=== PATIENT | female | born 1955 | race Caucasian/White ===

== ENCOUNTER 2024-09-15 01:01 | Emergency (ER) | payer OTHER, MEDICAID ==
[~2024-09-15] VITALS: Ht 160 cm; Wt 81.0 kg
--- NOTE | 2024-09-15 02:44 | ED.PDOC ---
General HPI Comments This patient is a pleasant but morbidly obese 69-year-old female who arrives the ED today with the family due to complaints of bilateral flank pain concerns of the radiating into her belly. Patient states the symptoms began last night and have continued through the day. Patient states they worsened several hours ago. Patient denies any fever nausea or vomiting. Vital signs were stable on arrival. Chief Complaint: Flank Pain Time Seen by MD: 01:05 Reviewed notes: Nurses Notes Information Source: Patient, Relative Mode of Arrival: Ambulatory Severity: Moderate Timing: Days Duration: Since onset Prehospital treatment: Pain Meds Onset: Spontaneous Symptoms: None History of: None Location: Abdomen, (R) Flank, (L)Flank associated signs and symptoms: Abdominal Pain, Flank Pain Past Medical History PAST MEDICAL HISTORY: Denies Surgical History: Denies all surgeries [employer] History: No Pertinent [employer] History Family History Family History: Reviewed,noncontributory to illness, No family hx of Cancer, No family hx of DM, No family hx of Heart casper, No family hx of HTN, No family hx ofKidney casper, No family hx of Liver casper, No family hx of Lung casper, No family hx of Stroke Social History Smoker: Non-Smoker Alcohol: Denies ETOH Use Drugs: Denies Drug Use Lives In: Home Constitutional: denies: chills, diaphoresis, fatigue, fever, malaise, sweats, weakness, others EENTM: denies: blurred vision, double vision, ear bleeding, ear discharge, ear drainage, ear pain, ear ringing, eye pain, eye redness, hearing loss, mouth pain, mouth swelling, nasal discharge, nose bleeding, nose congestion, nose pain, photophobia, tearing, throat pain, throat swelling, voice changes, others Respiratory: denies: cough, hemoptysis, orthopnea, SOB at rest, shortness of breath, SOB with excertion, stridor, wheezing, others Cardiovascular: denies: chest pain, dizzy spells, diaphoresis, Dyspnea on exertion, edema, irregular heart beat, left arm pain, lightheadedness, palpitations, PND, syncope, others Gastrointestinal: reports: abdominal pain; denies: abdomen distended, blood streaked bowels, constipated, diarrhea, dysphagia, difficulty swallowing, hematemesis, melena, nausea, poor appetite, poor fluid intake, rectal bleeding, rectal pain, vomiting, others Genitourinary: reports: flank pain; denies: abnormal vagina bleeding, burning, dyspareunia, dysuria, frequency, hematuria, incontinence, pain, , vagina discharge, urgency, others Neurological: denies: dizziness, fainting, headache, left sided numbness, left sided weakness, numbness, paresthesia, pre-existing deficit, right sided numbness, right sided weakness, seizure, speech problems, tingling, tremors, weakness, others Musculoskeletal: denies: back pain, gout, joint pain, joint swelling, muscle pain, muscle stiffness, neck pain, others Integumetry: denies: bruises, change in color, change in hair/nails, dryness, laceration, lesions, lumps, rash, wounds, others Allergic/Immunocompromised: denies: Difficulty Healing, Frequent Infections, Hives, Itching, others Hematologic/Lymphatic: denies: anemia, blood clots, easy bleeding, easy bruisi ng, swollen glands, others Endocrine: denies: excessive hunger, excessive sweating, excessive thirst, exce ssive urination, flushing, intolerance to cold, intolerance to heat, unexplained weight gain, unexplained weight loss, others Psychiatric: denies: anxiety, bipolar disorder, depression, hopeless, panic disorder, schizophrenia, sleepless, suicidal, others Physical Exam General Appearance: Moderate Distress (Due to bilateral flank pain concerns.), Obese HEENT: Normal ENT Inspection, Pharynx Normal, TMs Normal Neck: Full Range of Motion, Non-Tender, Normal, Normal Inspection Respiratory: Chest Non-Tender, Lungs Clear, No Accessory Muscle Use, No Respiratory Distress, Normal Breath Sounds Cardiovascular: No Edema, No JVD, No Murmur, No Gallop, Normal Peripheral Pulses, Regular Rate/Rhythm Breast Exam: Deferred Gastrointestinal: Other (Diffuse nonspecific CVA discomfort regionally bilaterally. Patient states pain travels to her abdomen. Difficult to assess due to body habitus. No pulsatile masses.) Genitalia: Deferred Pelvic: Deferred Rectal: Deferred Extremities: No calf tenderness, Normal capillary refill, Normal inspection, Normal range of motion, Non-tender, No pedal edema Neurologic: Alert, No Motor Deficits, Normal Affect, Normal Mood, No Sensory Deficits Cerebellar Function: Normal Reflexes: Normal Skin: Dry, Normal Color, Warm Lymphatic: No Adenopathy Was a procedure done? Was a procedure done?: No Differential Diagnosis Kidney stone (Female): Other (Kidney stone, pyelonephritis, UTI, musculoskeletal pain) X-Ray, Labs, Meds, VS Vital Signs Date Time Temp Pulse Resp B/P (MAP) Pulse Ox O2 Delivery O2 Flow Rate FiO2 09/15/24 02:19 97.9 101 18 117/84 (95) 99 97.9 Lab Test 09/15/24 00:00 Range/Units Urine Color Light-yellow Yellow Urine Clarity Clear Clear Urine pH 6.5 5.0-9.0 Urine Specific [place] 1.024 1.001-1.035 Urine Protein Negative Negative Urine Ketones Trace Negative Urine Blood Negative Negative /uL Urine Nitrite Negative Negative Urine Bilirubin Negative Negative Urine Urobilinogen Normal Negative mg/dL Urine Leukocyte Esterase Negative Negative /uL Urine RBC 2 0 - 4 /hpf Urine Microscopic WBC 2 0-5 /HPF Urine Squamous Epithelial Cells Few <5 /hpf Urine Bacteria None seen None Seen /hpf Urine Yeast (Budding) Few None Seen /hpf Urine Glucose 4+ H Normal mg/dL X-Ray, Labs, Meds, VS Comment All studies performed the ED were reviewed by me personally. Laboratories were unremarkable for any concerning urine related issues. CT of the abdomen and pelvis has been ordered. Those results will be reviewed by Dr. Romero. Once evaluated, she will respond accordingly. Time of 1ST Reevaluation: 02:43 Reevaluation 1ST: Improved Consultation: PCP Patient Education/Counseling: Diagnosis, Treatment Family Education/Counseling: Diagnosis, Treatment SEPSIS Sepsis Screen Date sepsis recognized/suspect: Sep 15, 2024 Time Sepsis recognized/suspect: 014 Recent Procedure: No On Antibiotic Therapy: No Respiratory Rate >20: No Heart Rate >90: No Temp<36 C (96.8 F) or >38.3 C: No SBP <90 or MAP <65 mmHG: No New Acute Mental Status Change: No Is the patient on CPAP, BIPAP,: No Physician Orders Ct Ab Pel Wo Con-No Oral Or Iv (09/15/24 03:00) Vital Signs Date Time Temp Pulse Resp B/P (MAP) Pulse Ox O2 Delivery O2 Flow Rate FiO2 09/15/24 02:19 97.9 101 18 117/84 (95) 99 97.9 Departure 1 Departure Time of Disposition: 02:43 Impression: Primary Impression: Flank pain Disposition: 01 HOME / SELF CARE / HOMELESS Condition: Stable Additional Instructions: Advise utilizing pain medication as needed for symptomatic relief. Good hydration and healthy nutrition throughout. e-Prescriptions Hydrocodone-Acetaminophen (Hydrocodone Bitartrate/AC 5-325 mg) 1 Tab Tab 1 TAB PO Q6HP PRN, #15 TAB Prov: KARI DAVIS PAC 09/15/24 Ibuprofen Micronized (Ibuprofen) 800 Mg Tab 800 MG PO Q8HP PRN, #20 TAB Prov: KARI DAVIS PAC 09/15/24 Discharged With: Self, Friend Critical Care Note Critical Care Time?: No Stability Stability form required: No Heart Score Heart Score: Heart Score Response (Comments) Value History N/A 0 EKG N/A 0 Age N/A 0 Risk Factors N/A 0 Troponin N/A 0 Total 0 KARI DAVIS PAC Sep 15, 2024 02:44
[2024-09-15 02:49] LABS: Urine Budding Yeast FEW /hpf (None Seen); Urine Protein, UAD Negative (Negative)
[2024-09-15] MEDS ORDERED: IBUP-1455 PO (03:02)
[2024-09-15] MEDS ORDERED: HYDR-4902 PO (03:02)
[2024-09-15 04:43] VITALS: TEMP 97.9
[2024-09-15] MEDS: HYDROcodone-ACET 10/325MG TAB PO ONE (04:48)
[2024-09-15] MEDS: KETOROLAC TROMETH 60MG/2ML VIAL IM ONE (04:48)
--- NOTE | 2024-09-15 05:49 | DVH ---
EXAM: CT CT AB PEL WO CON-NO ORAL OR IV HISTORY: Flank pain COMPARISON: None TECHNIQUE: Helical CT images of the abdomen and pelvis were performed without IV contrast. Sagittal a nd coronal reformatted images were obtained. This CT exam was performed using one or more of the foll owing dose reduction techniques: Automated exposure control, adjustment of the mA and/or kv according to patient size, or the use of iterative reconstruction techniques. Radiation Dose: Abdomen/Pelvis: CTDIvol 10.49 mGy, DLP 626.28 mGy*cm. FINDINGS: CT abdomen: The lung bases are hyperexpanded and otherwise clear. The heart is not enlarged. There is borderline diffuse fatty density of the liver. The noncontrast spleen, gallbladder, pancreas, and ad renal glands are unremarkable. No abdominal aortic aneurysm. There is a right proximal ureteral 6 mm calculus with associated [id number] right hydronephrosis. There is a left renal superior pole homogeneous cyst. CT pelvis: No abnormal bowel dilatation, free air, or free fluid. There is fecal retention throughout the colon. The appendix is not dilated. There is a tiny pocket of nondependent gas in the urinary b ladder lumen. There is a calcified fibroid in the right myometrium. There is [id number] osteoar thritis of the hips. There is moderate lumbar degenerative disc disease and advanced facet arthropath y. There are thoracolumbar and lumbosacral transitional vertebrae. There is multilevel significant n eural foraminal stenosis in the lumbar spine. IMPRESSION: 1. Right proximal ureteral 6 mm calculus with associated buym-eg-[id number] right hydronephrosis. 2. Fecal retention in the colon suggestive of constipation. 3. Fibroid uterus. 4. Lumbar degenerative disc disease and facet arthropathy with multilevel significant neural foramina l stenosis. Consider follow-up noncontrast MRI of the lumbar spine for better characterization, lucita cially if the patient complains of lower extremity radicular symptoms. 5. No evidence of bowel obstruction, acute appendicitis, or other acute process in the abdomen or pel vis.
[2024-09-15 06:53] VITALS: BP 118/52; PULSE 92; RESP 16; O2SAT 94
== END 2024-09-15 06:55 | disposition home or self-care (01) ==
LOC: ER 01:01
DX: R10.84 Generalized abdominal pain (principal)
CPT/HCPCS: 74176; 81001; 96372; 99285; J1885